=== PATIENT | female | born 1955 | race Caucasian/White ===

== ENCOUNTER 2016-12-04 13:23 | Emergency (ER) | payer BC, OTHER ==
[2016-12-04 13:31] VITALS: BP 162/81; PULSE 113; TEMP 97.8; BMI 46.5
[2016-12-04] MEDS ORDERED: OXYMETAZOLINE 0.05% NASAL SOLUTION 15 ML BOTTLE NS ONE (14:15)
--- NOTE | 2016-12-04 14:50 | PDOC ---
History of Present Illness - General Chief Complaint: Nasal Bleeding Stated Complaint: NASAL BLEEDING Time Seen by Provider: 12/04/16 14:22 History Source: Patient Exam Limitations: No Limitations - History of Present Illness Initial Comments: 12/04/16 14:47 61 yr female with nose bleed left side started this am, then stopped and started again while out shopping. Pt denies trauma no headache or dizzyness. Pt states he nose has been very dry the past week has noticed dried blood clots when blowing nose in the morning. Pt takes baby aspirin daily, no other blood thinners, no history of nose bleeds. took motrin yesterday for pain in wrist. 12/04/16 15:34 Severity: mild Associated Symptoms: reports: denies symptoms Past History - Past Medical History Allergies/Adverse Reactions: Allergies Allergy/AdvReac Type Severity Reaction Status Date / Time nebivolol HCl [From Bystolic] Allergy Mild Verified 12/04/16 13:31 Home Medications: Ambulatory Orders Losartan/Hydrochlorothiazide [Hyzaar 100-25 Tablet] 1 each PO DAILY 11/15/15 Amlodipine Besylate [Norvasc -] 2.5 mg PO DAILY 10/11/16 Anemia: No Asthma: No Cancer: No Cardiac Disorders: No CVA: No COPD: No CHF: No Dementia: No Diabetes: No GI Disorders: No Disorders: No HTN: Yes Hypercholesterolemia: Yes Liver Disease: No Seizures: No Thyroid Disease: No - Surgical History Abdominal Surgery: No Appendectomy: No Cardiac Surgery: No Cholecystectomy: No Lung Surgery: No Neurologic Surgery: No Orthopedic Surgery: No - Psycho/Social/Smoking Cessation Hx Anxiety: No Suicidal Ideation: No Smoking History: Never smoked Have you smoked in the past 12 months: No If you are a former smoker, when did you quit?: 27YRS AGO Hx Alcohol Use: No Drug/Substance Use Hx: No Substance Use Type: None Hx Substance Use Treatment: No Review of Systems - Review of Systems Able to Perform ROS?: Yes Is the patient limited Lao proficient: No Constitutional: No: Symptoms Reported HEENTM: Yes: See HPI *Physical Exam - Vital Signs Last Vital Signs Temp Pulse Resp BP Pulse Ox 97.8 F 113 H 20 162/81 96 12/04/16 13:28 12/04/16 13:28 12/04/16 13:28 12/04/16 13:28 12/04/16 13:28 - Physical Exam General Appearance: Yes: Nourished, Appropriately Dressed HEENT: positive: EOMI, JCARLOS, TMs Normal, Pharynx Normal, Other (bleeding left nare ) Respiratory/Chest: positive: Lungs Clear, Normal Breath Sounds Cardiovascular: positive: Regular Rhythm, Regular Rate Procedures - Additional Procedures Additional Procedures: other ED Treatment Course - Medications Given in the ED: ED Medications Discontinued Medications Generic Name Dose Route Start Last Admin Trade Name Renato PRN Reason Stop Dose Admin Oxymetazoline HCl 1 spray 12/04/16 14:15 12/04/16 14:34 Afrin - NS 12/04/16 14:16 1 spray ONCE ONE Administration Medical Decision Making - Medical Decision Making 12/04/16 15:36 cc: left nostril nose bleeding will have pt apply firm direct pressure 2 sprays afrin to left nostril silver nitrite to cauterize pt tolerated well no bleeding now will monitor 12/04/16 15:39 *DC/Admit/Observation/Transfer Diagnosis at time of Disposition: Anterior epistaxis - Discharge Dispostion Disposition: HOME Condition at time of disposition: Good - Referrals Referrals: Sherlyn Coleman MD [Primary Care Provider] - - Patient Instructions Additional Instructions: use saline spray 3-4 times during the day to keep nares moist use the decongestant nose spray 2 sprays in twelve hours follow with the ENT tomorrow as scheduled if bleeding re-occurs sit down and hold firm direct pressure to the bridge of nose for 15 minutes if bleeding does not stop you can return to the ER most nosebleeds will stop with firm direct pressure
== END 2016-12-04 15:07 | disposition home or self-care (01) ==
LOC: JERFT 13:23 → JER 13:23 → JERFT 15:07
PROC: 0W3Q0ZZ Control Bleeding in Respiratory Tract, Open Approach (ICD-10-PCS; principal; 2016-12-04)
DX: R04.0 Epistaxis (principal); I10 Essential (primary) hypertension; E78.00 Pure hypercholesterolemia, unspecified; Z87.891 Personal history of nicotine dependence
CPT/HCPCS: 99281-25

== ENCOUNTER 2018-11-01 02:36 | Emergency (ER) | payer BC, OTHER ==
[2018-11-01 03:00] VITALS: BP 145/65; PULSE 97; TEMP 98; BMI 48.2
[2018-11-01] MEDS ORDERED: TETRACAINE 0.5% OPHTH SOLN 2 ML BOTTLE ONE (03:01)
[2018-11-01] MEDS ORDERED: FLUORESCEIN NA 1 EA STRIP ONE (03:01)
--- NOTE | 2018-11-01 03:35 | PDOC ---
History of Present Illness - General Chief Complaint: Eye Problem Stated Complaint: LEFT EYE PROBLEM Time Seen by Provider: 11/01/18 02:44 History Source: Patient Exam Limitations: No Limitations Past History - Past Medical History Allergies/Adverse Reactions: Allergies Allergy/AdvReac Type Severity Reaction Status Date / Time nebivolol HCl [From Bystolic] Allergy Mild Verified 11/01/18 02:54 Home Medications: Ambulatory Orders Losartan/Hydrochlorothiazide [Hyzaar 100-25 Tablet] 1 each PO DAILY 11/15/15 Amlodipine Besylate [Norvasc -] 2.5 mg PO DAILY 10/11/16 Anemia: No Asthma: No Cancer: No Cardiac Disorders: No CVA: No COPD: No CHF: No Dementia: No Diabetes: No GI Disorders: No Disorders: No HTN: Yes Hypercholesterolemia: Yes Liver Disease: No Seizures: No Thyroid Disease: No - Surgical History Abdominal Surgery: No Appendectomy: No Cardiac Surgery: No Cholecystectomy: No Lung Surgery: No Neurologic Surgery: No Orthopedic Surgery: No - Suicide/Smoking/Psychosocial Hx Smoking History: Never smoked Have you smoked in the past 12 months: No If you are a former smoker, when did you quit?: 27YRS AGO Information on smoking cessation initiated: No Hx Alcohol Use: No Drug/Substance Use Hx: No Substance Use Type: None Hx Substance Use Treatment: No *Physical Exam - Vital Signs Last Vital Signs Temp Pulse Resp BP Pulse Ox 98.0 F 97 H 18 145/65 97 11/01/18 02:54 11/01/18 02:54 11/01/18 02:54 11/01/18 02:54 11/01/18 02:54 - Physical Exam General Appearance: No: Apparent Distress HEENT: positive: EOMI, JCARLOS, Other (No dye uptake, no evidence of corneal abrasion, no FB on eyelid eversion, no cell flare noted in eyes, 20/20 R eye, 20 /20 L eye, 20/20 both eyes) Neurologic: positive: pourer buggy ladle II-XII NML intact, Fully Oriented, Alert, Normal Mood/ Affect, Normal Response, Motor Strength 5/5. negative: Abnormal Cranial NS, Facial Droop, Confused, Disoriented Moderate Sedation - Procedure Monitoring Vital Signs: Procedure Monitoring Vital Signs Temperature 98.0 F 11/01/18 02:54 Pulse Rate 97 H 11/01/18 02:54 Respiratory Rate 18 11/01/18 02:54 Blood Pressure 145/65 11/01/18 02:54 O2 Sat by Pulse Oximetry (%) 97 11/01/18 02:54 Medical Decision Making - Medical Decision Making 63 y/o F hx of HTN presents with waking up in the middle of the night today and noticed black spot when moving L eye. Denies eye pain, photophobia, FB sensation in eyes, blurred vision, diplopia, vision loss, headache, n/v, numbness/tingling/weakness of extremities. PE unremarkable Could possibly by HTN retinopathy? Unlikely corneal abrasion, iritis, stroke Wanted to refer patient to interface analyst, but patient's son is physician at [facility], who states he will take her there to get evaluated 11/01/18 03:32 *DC/Admit/Observation/Transfer Diagnosis at time of Disposition: Eye abnormality - Discharge Dispostion Disposition: HOME Condition at time of disposition: Stable Decision to Admit order: No - Referrals - Patient Instructions Additional Instructions: Thank you for choosing [facility]. It was a pleasure taking care of you. The cause of your symptoms could be related to retinopathy, for which you will need further evaluation by an eye doctor. Return to the Emergency Department if your symptoms worsen or persist, you have fever, loss of vision, double vision, severe eye pain, weakness of extremities ( arms and/or legs), changes in vision or walking, severe headache or other concerning symptoms. - Post Discharge Activity
== END 2018-11-01 05:00 | disposition home or self-care (01) ==
LOC: JER 02:36
DX: K08.89 Other specified disorders of teeth and supporting structures (principal); I10 Essential (primary) hypertension
CPT/HCPCS: 99281-25

== ENCOUNTER 2020-08-14 05:05 | Day surgery (SDC) | payer OTHER ==
[2020-08-09 15:09] VITALS: BMI 48.8
--- OUTSIDE RECORDS SUMMARY | 2020-08-14 05:10 | XMS ---
:1955 Author Organization [facility] Care Team Providers Name Role Phone VANITA SANTAMARIA Unavailable Unavailable ANITHA SUMMERS Unavailable Unavailable BAKARI ECHOLS Unavailable Unavailable Roston, Andreas Unavailable Unavailable Roston, Andreas Unavailable Unavailable Roston, Andreas Unavailable Unavailable Roston, Andreas Unavailable Unavailable Roston, Andreas Unavailable Unavailable Roston, Andreas Unavailable Unavailable Roston, Andreas Unavailable Unavailable Roston, Andreas Unavailable Unavailable Re-disclosure Warning The records that you are about to access may contain information from federally- assisted alcohol or drug abuse programs. If such information is present, then the following federally mandated warning applies: This information has been disclosed to you from records protected by federal confidentiality rules (42 CFR part 2). The federal rules prohibit you from making any further disclosure of this information unless further disclosure is expressly permitted by the written consent of the person to whom it pertains or as otherwise permitted by 42 CFR part 2. A general authorization for the release of medical or other information is NOT sufficient for this purpose. The Federal rules restrict any use of the information to criminally investigate or prosecute any alcohol or drug abuse patient.The records that you are about to access may contain highly sensitive health information, the redisclosure of which is protected by Article 27-F of the [place] State Public Health law. If you continue you may haveaccess to information: Regarding HIV / AIDS; Provided by facilities licensed or operated by the [facility] Office of Mental Health; or Provided by the [facility] Office for People With Developmental Disabilities. If such information is present, then the following [facility] mandated warning applies: This information has been disclosed to you from confidential records which are protected by state law. State law prohibits you from making any further disclosure of this information without the specific written consent of the person to whom it pertains, or as otherwise permitted by law. Any unauthorized further disclosure in violation of state law may result in a fine or fpc sentence or both. A general authorization for the release of medical or other information is NOT sufficient authorization for further disclosure. Allergies and Adverse Reactions Type Description Substance Reaction Status Data Source(s ) Adverse Reaction Adverse Reaction Allopurinol M EDENT (Digestive Disease & Nutr [facility]) Adverse Reaction Adverse Reaction Bystolic ME DENT (Digestive Disease & Nutr [facility]) Family History Family Member Family Member Family Member Date of Description Data Source(s) Name Gender Status Status Unknown Unknown Problem MEDENT (Digestive Disease & Nutrition [facility] ) Encounters Encounter Providers Location Date Indications Data Source(s ) Outpatient Attender: MELINA 07/18/2020 J45.998 [facility] ANITH[facility]indaAdmitter[facility] ANITHAGAURAV FRANCO Mona PerlaReferrer: VANITA SANTAMARIA J45.998 Outpatient Attender: KINZA 07/13/2020 01:02:00 Z03.818 [facility] BAKARI ShafferAdmitter: [facility] BAKARI ECHOLS EBalbirReferrer: BAKARI ECHOLS Z03.818 Outpatient Attender: Andreas Digestive Disease 08/05/2019 M EDENT (Digestive [place] & Nutrition 05:10:00 PM [facility] Disease & Nutrition [facility]) Outpatient Attender: Andreas Digestive Disease 07/08/2019 M EDENT (Digestive [place] & Nutrition 05:00:00 PM [facility] Disease & Nutrition [facility]) Outpatient Attender: Andreas Digestive Disease 05/27/2019 M EDENT (Digestive [place] & Nutrition 05:00:00 PM [facility] Disease & Nutrition [facility]) Outpatient Attender: Andreas Digestive Disease 05/13/2019 M EDENT (Digestive [place] & Nutrition 05:00:00 PM EDT Disease & Nutrition [facility]) Outpatient Attender: Andreas Digestive Disease 04/29/2019 M EDENT (Digestive [place] & Nutrition 04:50:00 PM EDT Disease & Nutrition [facility]) Outpatient Attender: Andreas Digestive Disease 04/15/2019 M EDENT (Digestive [place] & Nutrition 05:05:00 PM EDT Disease & Nutrition [facility]) Outpatient Attender: Andreas Digestive Disease 03/18/2019 M EDENT (Digestive [place] [facility] Nutrition 05:25:00 PM EDT Disease & Nutrition [facility]) Outpatient Attender: Andreas Digestive Disease 03/04/2019 M EDENT (Digestive [place] & Nutrition 05:10:00 PM EDT Disease & Nutrition [facility]) Outpatient Attender: Andreas Digestive Disease 02/18/2019 M EDENT (Digestive [place] & Nutrition 05:05:00 PM EDT Disease & Nutrition [facility]) Outpatient Attender: Andreas Digestive Disease 02/04/2019 M EDENT (Digestive [place] & Nutrition 05:10:00 PM EDT Disease & Nutrition [facility]) Outpatient Attender: Andreas Digestive Disease 01/28/2019 M EDENT (Digestive [place] & Nutrition 12:30:00 PM EDT Disease & Nutrition [facility]) Outpatient Attender: Andreas Digestive Disease 01/21/2019 M EDENT (Digestive [place] & Nutrition 04:10:00 PM [facility] Disease & Nutrition [facility]) Outpatient Attender: Andreas Digestive Disease 01/14/2019 M EDENT (Digestive [place] & Nutrition 04:00:00 PM EST Disease & Nutrition [facility]) Outpatient Attender: Andreas Digestive Disease 01/04/2019 M EDENT (Digestive [place] & Nutrition 09:40:00 AM EST Disease & Nutrition [facility]) Medications Medication Brand Start Product Dose Route Administrative Pharmacy [facility] Indications Reaction Description Data Name Date Form Instructions Instructions Source(s) Ursodiol Ursodi 03/08/ ORAL active MEDEN T 500 MG Oral 2018 (Digesti ve Tablet 12:00: Disease & 00 AM Nutrition EDT [facility]) Ursodiol Ursodi 01/04/ ORAL complet MEDE NT 500 MG Oral ol 2019 ed (Digesti ve Tablet 12:00: Disease & 00 AM Nutrition EST [facility]) 24 HR Diltia ORAL active MEDENT Diltiazem zem (Digestive Hydrochlori HCL ER Diseas e & de 120 MG [facility] Oral r) Capsule Losartan Losart ORAL active MEDENT Potassium an (Digestive 50 MG Oral Potass Disease & Tablet ium Nutrition [facility]) 24 HR Metopr ORAL active MEDENT metoprolol olol (Digestiv e succinate Succin Disease & 25 MG ate ER Nutrition [facility] Oral Tablet r) Hydrochloro Hyzaar ORAL active MEDE NT thiazide (Digestive 12.5 MG / Disease & Losartan Nutrition Potassium Center of 50 MG Oral [facility] Tablet r) [Hyzaar] Insurance Providers Payer Policy type / Policy ID Covered Covered alliance party's Policy Plan name Coverage type alliance party ID relationship to Sarmiento Information sarmiento AET[employer] PPO [id number] SP [id number] AETNA PPO [id number] SP [id number] [employer] Ppo Health [id number] Self [id number] Maintenance Organization (HMO) [employer] Ppo Health [id number] Self [id number] Maintenance Organization (HMO) [employer] Ppo Health [id number] Self [id number] Maintenance Organization (HMO) [employer] Ppo [employer] [id number] Self [id number] Maintenance Organization (HMO) [employer] Health [id number] Self [id number] Maintenance Organization (HMO) [employer] [id number] Self [id number] Maintenance Organization (HMO) [employer] [id number] Self [id number] Maintenance Organization (HMO) [employer] [id number] Self [id number] Maintenance Organization (HMO) [employer] [id number] Self [id number] Maintenance Organization (HMO) [employer] [id number] Self [id number] Maintenance Organization (HMO) [employer] [id number] Self [id number] Maintenance Organization (HMO) Problems, Conditions, and Diagnoses Code Display Name Description Problem Effective Data Type Dates Source(s) 082712270 Dietary management Dietary management Problem 9 MEDENT surveillance surveillance 12:00:00 (Digestive (regime/therapy) [facility] Disease & Nutrition [facility]) [id number] Body mass index 40+ - Body mass index 40+ - Problem 05/2019 MEDENT severely obese severely obese 12:00:00 (Diges tive (finding) [facility] Disease & Nutrition [facility]) [id number] Pure Pure Problem 01/04/2019 MEDENT hypercholesterolemia hypercholesterolemia 12:00 :00 (Digestive (disorder) [facility] Disease & Nutrition [facility]) [id number] Essential hypertension Essential Problem 01/04/2019 ME DENT (disorder) hypertension 12:00:00 (Digestive [facility] Disease & Nutrition [facility]) J45.998 Other asthma OTHER ASTHMA Diagnosis 07[facility]00 [facility] Z03.818 Encounter for ENCNTR FOR OBS FOR Diagnosis 07/13/2020 [facility] observation for SUSP EXPSR TO OTH 01:02:00 Co unty suspected exposure to BIOLG AGENTS RULED PM EDT Health Care other biological OUT Corporat ion agents ruled out Surgeries/Procedures Procedure Description Date Indications Data Source(s) ECG ROUTINE ECG 01/04/2019 MEDENT (Dige stive W/LEAST 12 LDS W/I&R 12:00:00 AM EST [facility] ase & Nutrition [facility]) Results ID Date Data Source [id number] 08/09/2020 05:30:00 PM EDT [facility] Name Value Range Interpretation Description Data Sup porting Code Source(s) Document(s ) SARS [facility] coronavirus 2 RNA This lab was ordered by [facility] and reported by [facility]. ID Date Data Source [id number] 06/08/2020 11:24:00 AM EDT [facility] Name Value Range Interpretation Code Description Data Manuela rce(s) Supporting Document(s ) SARS-CoV-2 [facility] RNA [facility] Ql KATLIN+probe This lab was ordered by [facility] a nd reported by [facility]. ID Date Data Source [id number] 05/29/2020 05:00:00 PM EDT [facility] Name Value Range Interpretation Description Data Sup porting Code Source(s) Document(s ) SARS [facility] Coronavirus 2 RNA Presence Respiratory Specimen KATLIN Probe Detection This lab was ordered by [place] and rep orted by [facility]. ID Date Data Source [id number] 08/05/2019 05:30:00 PM EDT MEDENT ([facility] Disease & Nutrition [facility]) Name Value Range Interpretation Description Data Sup porting Code Source(s) Document(s ) Urate 8.8 3.1-7.8 Above high normal MEDENT [Mass/volume] mg/dL (Digestive in Serum or Disease & Plasma Nutrition [facility]) Hemoglobin 5.6 % 4.2-6.3 Normal (applies MEDENT A1c/Hemoglobin to non-numeric (Digestive .total in results) Disease & Blood Nutrition [facility]) ADA RECOMMENDATIONS: NON-DIABETES: 4.0-6.0% CONTROLLED DIABETES: 6.0-8.0% UNCONTROLLED DIABETES: UP TO 20% RECOMMENDED ADA RESULT FOR THERAPY: HEMO GLOBIN A1C RESULT LESS THAN 7%. NOTE: METHOD CHANGE EFFECTIVE 06/16/15. ID Date Data Source [id number] 08/05/2019 05:30:00 PM EDT MEDENT ([facility]) Name Value Range Interpretation Description Data Sup porting Code Source(s) Document(s ) Cholesterol 253 107-199 Above high normal MEDENT [Mass/volume] mg/dL (Digestive in Serum or Disease & Plasma Nutrition [facility]) Triglyceride 223 35-150 Above high normal MEDENT [Mass/volume] mg/dL (Digestive in Serum or Disease & Plasma Nutrition [facility]) Cholesterol in 63 mg/dL 40-91 Normal (applies MEDENT HDL to non-numeric (Digestive [Mass/volume] results) Disease & in Serum or Nutrition Plasma [facility]) Laboratory test 44 mg/dL 5-40 Above high normal MEDENT finding (Digestive (navigational Disease & concept) [facility]) Cholesterol in 162 30-130 Above high normal MEDENT LDL mg/dL (Digestive [Mass/volume] Disease & in Serum or Nutrition Plasma by Center of calculation [place]) Laboratory test 4.0 0.0-5.0 Normal (applies MEDENT finding RATIO to non-numeric (Digestive (navigational results) Disease & concept) Nutrition [facility]) LOW MALE AND AVERAGE FEMALE CORONARY HEA RT DISEASE RISK. ID Date Data Source [id number] 08/05/2019 05:30:00 PM EDT MEDENT (Diges tive Disease & Nutrition [facility]) Name Value Range Interpretation Description Data Sup porting Code Source(s) Document(s ) Glucose 93 74-106 Normal (applies MEDENT [Mass/volume] in mg/dL to non-numeric (Digesti ve Serum or Plasma results) Disease & Nutrition [facility] ) Sodium 141 136-145 Normal (applies MEDENT [Moles/volume] in mmol/L to non-numeric (Digest vinay Serum or Plasma results) Disease & Nutrition [facility] ) Chloride 101 98-107 Normal (applies MEDENT [Moles/volume] in mmol/L to non-numeric (Digest vinay Serum or Plasma results) Disease & Nutrition [facility] ) Potassium 4.3 3.5-5.3 Normal (applies MEDENT [Moles/volume] in mmol/L to non-numeric (Digest vinay Serum or Plasma results) Disease & Nutrition [facility] ) Laboratory test 23 6-20 Above high MEDENT finding mg/dL normal (Digestive (navigational Disease & concept) Nutrition [facility] ) Laboratory test 13 6-18 Normal (applies MEDENT finding to non-numeric (Digestive (navigational results) Disease & concept) Nutrition [facility] ) Carbon dioxide, 31 23-31 Normal (applies MEDENT total mmol/L to non-numeric (Digestive [Moles/volume] in results) Disease & Serum or Plasma Nutrition [facility] ) Calcium 9.8 8.3-10. Normal (applies MEDENT [Mass/volume] in mg/dL 6 to non-numeric (Digesti ve Serum or Plasma results) Disease & Nutrition [facility] ) Creatinine 0.8 0.6-1.1 Normal (applies MEDENT [Mass/volume] in mg/dL to non-numeric (Digesti ve Serum or Plasma results) Disease & Nutrition [facility] ) Laboratory test 28.8 6.0-20. Above high MEDENT finding 0 normal (Digestive (navigational Disease & concept) Nutrition [facility] ) Albumin 4.8 3.4-4.8 Normal (applies MEDENT [Mass/volume] in GM/DL to non-numeric (Digesti ve Serum or Plasma results) Disease & Nutrition [facility] ) Protein 7.9 5.7-8.2 Normal (applies MEDENT [Mass/volume] in GM/DL to non-numeric (Digesti ve Serum or Plasma results) Disease & Nutrition [facility] ) Laboratory test 1.5 1.0-2.1 Normal (applies MEDENT finding to non-numeric (Digestive (navigational results) Disease & concept) Nutrition [facility] ) Alkaline 76 U/L 41-147 Normal (applies MEDENT phosphatase to non-numeric (Digestive [Enzymatic results) Disease & activity/volume] in Nutrition Serum or Plasma [facility] ) Bilirubin.total 0.7 0.3-1.2 Normal (applies MEDENT [Mass/volume] in mg/dL to non-numeric (Digesti ve Serum or Plasma results) Disease & Nutrition [facility] ) Alanine 28 U/L 8-35 Normal (applies MEDENT aminotransferase to non-numeric (Digesti ve [Enzymatic results) Disease & activity/volume] in Nutrition Serum or Plasma [facility] ) Aspartate 17 U/L 10-48 Normal (applies MEDENT aminotransferase to non-numeric (Digesti ve [Enzymatic results) Disease & activity/volume] in Nutrition Serum or Plasma [facility] ) ID Date Data Source [id number] 08/05/2019 05:30:00 PM EDT MEDENT (Diges tive Disease & Nutrition [facility]) Name Value Range Interpretation Description Data Sup porting Code Source(s) Document(s ) Laboratory 7.4 K/UL 4.0-10.0 Normal (applies MEDENT test finding to non-numeric (Digestive (navigational results) Disease & concept) Nutrition [facility]) Laboratory 4.93 3.80-5.1 Normal (applies MEDENT test finding MIL/UL 0 to non-numeric (Digestive (navigational results) Disease & concept) [facility]) Laboratory 14.4 11.8-15. Normal (applies MEDENT test finding GM/DL 3 to non-numeric (Digestive (navigational results) Disease & concept) [facility]) Laboratory 29.2 pg 27.0-34. Normal (applies MEDENT test finding 0 to non-numeric (Digestive (navigational results) Disease & concept) Nutrition [facility]) Laboratory 91.7 FL 80.0-96. Normal (applies MEDENT test finding 0 to non-numeric (Digestive (navigational results) Disease & concept) Nutrition [facility]) Laboratory 45.2 % 35.0-45. Above high normal MEDENT test finding 0 (Digestive (navigational Disease & concept) [facility]) Laboratory 31.9 31.0-36. Normal (applies MEDENT test finding GM/DL 0 to non-numeric (Digestive (navigational results) Disease & concept) Nutrition [facility]) Laboratory 323 K/UL 150-400 Normal (applies MEDENT test finding to non-numeric (Digestive (navigational results) Disease & concept) [facility]) Laboratory 13.8 % 11.5-14. Normal (applies MEDENT test finding 5 to non-numeric (Digestive (navigational results) Disease & concept) [facility]) Laboratory 10.6 FL 9.6-12.8 Normal (applies MEDENT test finding to non-numeric (Digestive (navigational results) Disease & concept) [facility]) ID Date Data Source [id number] 05/13/2019 05:34:00 PM EDT MEDENT ([facility] Disease & Nutrition [facility]) Name Value Range Interpretation Description Data Sup porting Code Source(s) Document(s ) Magnesium 2.3 mg/dL 1.3-2.7 Normal (applies MEDENT [Mass/volume] to non-numeric (Digestive in Serum or results) Disease & Plasma Nutrition [facility]) Phosphate 4.2 mg/dL 2.7-4.5 Normal (applies MEDENT [Moles/volume to non-numeric (Digestive ] in Serum or results) Disease & Plasma Nutrition [facility]) ID Date Data Source [id number] 05/13/2019 05:34:00 PM EDT MEDENT ([facility] Disease & Nutrition [facility]) Name Value Range Interpretation Description Data Sup porting Code Source(s) Document(s ) Cholesterol 242 107-199 Above high normal MEDENT [Mass/volume] mg/dL (Digestive in Serum or Disease & Plasma Nutrition [facility]) Triglyceride 232 35-150 Above high normal MEDENT [Mass/volume] mg/dL (Digestive in Serum or Disease & Plasma Nutrition [facility]) Cholesterol in 61 mg/dL 40-91 Normal (applies MEDENT HDL to non-numeric (Digestive [Mass/volume] results) Disease & in Serum or Nutrition Plasma [facility]) Cholesterol in 150 30-130 Above high normal MEDENT LDL mg/dL (Digestive [Mass/volume] Disease & in Serum or Nutrition Plasma by [facility]) Laboratory test 46 mg/dL 5-40 Above high normal MEDENT finding (Digestive (navigational Disease & concept) [facility]) Laboratory test 4.0 0.0-5.0 Normal (applies MEDENT finding RATIO to non-numeric (Digestive (navigational results) Disease & concept) [facility]) LOW MALE AND AVERAGE FEMALE CORONARY HEA RT DISEASE RISK. ID Date Data Source [id number] 05/13/2019 05:34:00 PM EDT [facility]) Name Value Range Interpretation Description Data Sup porting Code Source(s) Document(s ) Urate 8.5 3.1-7.8 Above high normal MEDENT [Mass/volume] mg/dL (Digestive in Serum or Disease & Plasma [facility]) Hemoglobin 5.9 % 4.2-6.3 Normal (applies MEDENT A1c/Hemoglobin to non-numeric (Digestive .total in results) Disease & Blood [facility]) ADA RECOMMENDATIONS: NON-DIABETES: 4.0-6.0% CONTROLLED DIABETES: 6.0-8.0% UNCONTROLLED DIABETES: UP TO 20% RECOMMENDED ADA RESULT FOR THERAPY: HEMO GLOBIN A1C RESULT LESS THAN 7%. NOTE: METHOD CHANGE EFFECTIVE 06/16/15. ID Date Data Source [id number] 05/13/2019 05:34:00 PM EDT MEDENT ([facility]) Name Value Range Interpretation Description Data Sup porting Code Source(s) Document(s ) Laboratory 8.7 K/UL 4.0-10.0 Normal (applies MEDENT test finding to non-numeric (Digestive (navigational results) Disease & concept) [facility]) Laboratory 4.89 3.80-5.1 Normal (applies MEDENT test finding MIL/UL 0 to non-numeric (Digestive (navigational results) Disease & concept) Nutrition [facility]) Laboratory 14.3 11.8-15. Normal (applies MEDENT test finding GM/DL 3 to non-numeric (Digestive (navigational results) Disease & concept) Nutrition [facility]) Laboratory 45.4 % 35.0-45. Above high normal MEDENT test finding 0 (Digestive (navigational Disease & concept) Nutrition [facility]) Laboratory 92.8 FL 80.0-96. Normal (applies MEDENT test finding 0 to non-numeric (Digestive (navigational results) Disease & concept) Nutrition [facility]) Laboratory 31.5 31.0-36. Normal (applies MEDENT test finding GM/DL 0 to non-numeric (Digestive (navigational results) Disease & concept) Nutrition [facility]) Laboratory 29.2 pg 27.0-34. Normal (applies MEDENT test finding 0 to non-numeric (Digestive (navigational results) Disease & concept) Nutrition [facility]) Laboratory 336 K/UL 150-400 Normal (applies MEDENT test finding to non-numeric (Digestive (navigational results) Disease & concept) Nutrition [facility]) Laboratory 14.5 % 11.5-14. Normal (applies MEDENT test finding 5 to non-numeric (Digestive (navigational results) Disease & concept) Nutrition [facility]) Laboratory 10.8 FL 9.6-12.8 Normal (applies MEDENT test finding to non-numeric (Digestive (navigational results) Disease & concept) Nutrition [facility]) ID Date Data Source [id number] 05/13/2019 05:34:00 PM EDT MEDENT (Diges tive Disease & Nutrition [facility]) Name Value Range Interpretation Description Data Sup porting Code Source(s) Document(s ) Sodium 141 136-145 Normal (applies MEDENT [Moles/volume] in mmol/L to non-numeric (Digest vinay Serum or Plasma results) Disease & Nutrition [facility] ) Glucose 88 74-106 Normal (applies MEDENT [Mass/volume] in mg/dL to non-numeric (Digesti ve Serum or Plasma results) Disease & Nutrition [facility] ) Potassium 4.2 3.5-5.3 Normal (applies MEDENT [Moles/volume] in mmol/L to non-numeric (Digest vinay Serum or Plasma results) Disease & Nutrition [facility] ) Chloride 102 98-107 Normal (applies MEDENT [Moles/volume] in mmol/L to non-numeric (Digest vinay Serum or Plasma results) Disease & Nutrition [facility] ) Carbon dioxide, 27 23-31 Normal (applies MEDENT total mmol/L to non-numeric (Digestive [Moles/volume] in results) Disease & Serum or Plasma Nutrition [facility] ) Laboratory test 16 6-18 Normal (applies MEDENT finding to non-numeric (Digestive (navigational results) Disease & concept) Nutrition [facility] ) Laboratory test 25 6-20 Above high MEDENT finding mg/dL normal (Digestive (navigational Disease & concept) Nutrition [facility] ) Creatinine 0.7 0.6-1.1 Normal (applies MEDENT [Mass/volume] in mg/dL to non-numeric (Digesti ve Serum or Plasma results) Disease & Nutrition [facility] ) Laboratory test 35.7 6.0-20. Above high MEDENT finding 0 normal (Digestive (navigational Disease & concept) Nutrition [facility] ) Calcium 9.6 8.3-10. Normal (applies MEDENT [Mass/volume] in mg/dL 6 to non-numeric (Digesti ve Serum or Plasma results) Disease & Nutrition [facility] ) Protein 7.5 5.7-8.2 Normal (applies [facility] [Mass/volume] in GM/DL to non-numeric (Digesti ve Serum or Plasma results) Disease & Nutrition [facility] ) Albumin 4.6 3.4-4.8 Normal (applies [facility] [Mass/volume] in GM/DL to non-numeric (Digesti ve Serum or Plasma results) Disease & Nutrition [facility] ) Laboratory test 1.6 1.0-2.1 Normal (applies MED[facility] finding to non-numeric (Digestive (navigational results) Disease & concept) Nutrition [facility] ) Bilirubin.total 0.7 0.3-1.2 Normal (applies [facility] [Mass/volume] in mg/dL to non-numeric (Digesti ve Serum or Plasma results) Disease & Nutrition [facility] ) Alkaline 74 U/L 41-147 Normal (applies MED[facility] phosphatase to non-numeric (Digestive [Enzymatic results) Disease & activity/volume] in Nutrition Serum or Plasma [facility] ) Alanine 27 U/L 8-35 Normal (applies [facility] aminotransferase to non-numeric (Digesti ve [Enzymatic results) Disease & activity/volume] in Nutrition Serum or Plasma [facility] ) Aspartate 17 U/L 10-48 Normal (applies [facility] aminotransferase to non-numeric (Digesti ve [Enzymatic results) Disease & activity/volume] in Nutrition Serum or Plasma [facility] ) ID Date Data Source [id number] 03/18/2019 05:07:00 PM EDT MEDENT (Diges tive [facility] & Nutrition [facility]) Name Value Range Interpretation Description Data Sup porting Code Source(s) Document(s ) Cholesterol 244 mg/dL Above high normal [facility] [Mass/volume] (Digestive in Serum or Disease & Plasma Nutrition [facility]) Cholesterol in 55 mg/dL Normal (applies MED[facility] HDL to non-numeric (Digestive [Mass/volume] results) Disease & in Serum or Nutrition Plasma [facility]) Cholesterol in 153 mg/dL Above high normal [facility] LDL (Digestive [Mass/volume] Disease & in Serum or Nutrition Plasma by [facility]) <content>LDL-C is now calculated using heide Dominique calculation,</content>
<content>which is a validated novel method providing be tter accuracy</content>
<content>than the Friedewald equation in the estimation of LDL-C.</co ntent>
<content>[place] PELLETIER et al. ALEK. 2013; 310(19): 1281-0604</content>
<content></sommer nt>
<content>For additional information, please refer to</content>
<content>[email or web address]</cont ent>
<content>( This link is being provided for informational/educational</content>
<content>purposes only.)</content>
<content></content>
<content>Desirable range < 100 mg/dL for primary prevention; <70 mg/dL</content>
<con tent>for patients with CHD or diabetic patients with > or = 2 CHD</content>
<content>risk factor s.</content>
<content></content> Cholesterol.total/Cholesterol in 4.4 calc Normal (applies [facility] (Digestive HDL [Mass Ratio] in Serum or Plasma to non-numeric Disease & results) Nutrition [facility]) Triglyceride [Mass/volume] in Serum 222 mg/dL Above high normal [facility] (Digestive or Plasma Disease & Nutrition [facility]) Cholesterol non HDL [Mass/volume] 189 Above high prudence l MED[facility] (Digestive in Serum or Plasma mg/dL(calc Disease & ) Nutrition [facility]) <content>For patients with diabetes plus 1 major ASCVD risk</content>
<content>factor, mell ting to a non-HDL-C goal of <100 mg/dL</content>
<content>(LDL-C of < 70 mg/dL) is considered a therapeutic</content>
<content>optio n.</content>
<content></content> ID Date Data Source [id number] 03/18/2019 05:07:00 PM EDT [facility] ([facility]) Name Value Range Interpretation Description Data Sup porting Code Source(s) Document(s ) Urate 8.7 mg/dL 2.5-7.0 Above high normal [facility] [Mass/volu (Digestive me] in Disease & Serum or Nutrition Plasma [facility]) <content>Therapeutic target for gout pat ients: <6.0 mg/dL</content>
<content></content> ID Date Data Source [id number] 03/18/2019 05:07:00 PM EDT [facility] ([facility] & Nutrition [facility]) Name Value Range Interpretation Description Data Sup porting Code Source(s) Document(s ) Glucose 88 mg/dL 65-139 Normal (applies to [facility] [Mass/volum non-numeric (Digestive e] in Serum results) Disease & or Plasma Nutrition [facility]) <content>Therapeutic target for gout pat ients: <6.0 mg/dL</content>
<content></content> Sodium [Moles/volume] 138 mmol/L 135-146 Normal (applies to [facility] (Digestive in Serum or Plasma non-numeric Disease & Nutrition results) [facility]) Chloride 99 mmol/L 98-110 Normal (applies to [facility] (Dig estive [Moles/volume] in non-numeric Disease & Nutrition Serum or Plasma results) [facility]) Potassium 4.2 mmol/L 3.5-5.3 Normal (applies to [facility] (Di gestive [Moles/volume] in non-numeric Disease & Nutrition Serum or Plasma results) [facility]) Urea nitrogen 20 mg/dL 7-25 Normal (applies to [facility] (Digestive [Mass/volume] in Serum non-numeric Disea se & Nutrition or Plasma results) [facility]) Carbon dioxide, total 26 mmol/L 20-32 Normal (applies to [facility] (Digestive [Moles/volume] in non-numeric Disease & Nutrition Serum or Plasma results) [facility]) Calcium [Mass/volume] 9.7 mg/dL 8.6-10.4 Normal (applies to [facility] (Digestive in Serum or Plasma non-numeric Disease & Nutrition results) [facility]) Creatinine 0.81 mg/dL 0.50-0.99 Normal (applies to [facility] (D igestive [Mass/volume] in Serum non-numeric Disea se & Nutrition or Plasma results) [facility]) The upper reference limit for Creatinine is approximately 13% higher for people identified as Afri can-[place]. Urea nitrogen/Creatinine NOTE (calc) 6-22 Normal (applies to [facility] (Digestive [Mass Ratio] in Serum or non-numeric Dis ease & Nutrition Plasma results) [facility]) Bun/Creatinine ratio is not reported whe n the Bun and Creatinine values are within normal limi ts. Globulin [Mass/volume] 3.2 g/dL(calc) 1.9-3.7 Normal (applies [facility] (Digestive in Serum by calculation to non-numeric D isease & results) Nutrition [facility]) Albumin [Mass/volume] 4.5 g/dL 3.6-5.1 Normal (applies ME DENT (Digestive in Serum or Plasma to non-numeric Diseas e & results) Nutrition Center [facility]) Protein [Mass/volume] 7.7 g/dL 6.1-8.1 Normal (applies ME DENT (Digestive in Serum or Plasma to non-numeric Diseas e & results) Nutrition [facility]) Bilirubin.total 0.6 mg/dL 0.2-1.2 Normal (applies [facility] ( Digestive [Mass/volume] in Serum to non-numeric Di sease & or Plasma results) Nutrition [facility]) Albumin/Globulin [Mass 1.4 (calc) 1.0-2.5 Normal (applies [facility] (Digestive Ratio] in Serum or to non-numeric Diseas e & Plasma results) Nutrition [facility]) Aspartate 17 U/L 10-35 Normal (applies MED[facility] (Digest vinay aminotransferase to non-numeric Disease & [Enzymatic results) Nutrition Center activity/volume] in of [facility]) Serum or Plasma Alkaline phosphatase 74 U/L 33-130 Normal (applies MED ENT (Digestive [Enzymatic to non-numeric Disease & activity/volume] in results) Nutrition [place] Serum or Plasma of [place] ) ID Date Data Source [id number] 03/18/2019 05:07:00 PM EDT MED[facility] (Diges tive Disease & Nutrition Center [facility]) Name Value Range Interpretation Description Data Sup porting Code Source(s) Document(s ) Erythrocytes 4.83 3.80-5.1 Normal (applies [facility] [#/volume] in Million/ 0 to non-numeric (Digestive Blood by uL results) Disease & Automated count Nutrition [facility] ) Leukocytes 8.1 3.8-10.8 Normal (applies MED[facility] [#/volume] in Thousand to non-numeric (Digestive Blood by /uL results) Disease & Automated count Nutrition [facility] ) Hemoglobin 14.3 11.7-15. Normal (applies [facility] [Mass/volume] in g/dL 5 to non-numeric (Digesti ve Blood results) Disease & Nutrition [facility] ) Hematocrit 42.1 % 35.0-45. Normal (applies [facility] [Volume 0 to non-numeric (Digestive Fraction] of results) Disease & Blood by Nutrition Automated count [facility] ) Erythrocyte mean 87.2 fL 80.0-100 Normal (applies MEDENT corpuscular .0 to non-numeric (Digestive volume [Entitic results) Disease & volume] by Nutrition Automated count [facility] ) Erythrocyte mean 34.0 32.0-36. Normal (applies MEDENT corpuscular g/dL 0 to non-numeric (Digestive hemoglobin results) Disease & concentration Nutrition [Mass/volume] by Center of Automated count [place] ) Erythrocyte mean 29.6 pg 27.0-33. Normal (applies MEDENT corpuscular 0 to non-numeric (Digestive hemoglobin results) Disease & [Entitic mass] Nutrition by Automated Center of count [place] ) Platelet mean 10.4 fL 7.5-12.5 Normal (applies MEDENT volume [Entitic to non-numeric (Digestiv e volume] in Blood results) Disease & by [facility] ) Platelets 346 140-400 Normal (applies MED[facility] [#/volume] in Thousand to non-numeric (Digestive Blood by /uL results) Disease & Automated count Nutrition [facility] ) Erythrocyte 13.5 % 11.0-15. Normal (applies MEDENT distribution 0 to non-numeric (Digestive width [Ratio] by results) Disease & Automated count Nutrition [facility] ) ID Date Data Source [id number] 02/04/2019 04:58:00 PM EDT MED[facility] (Diges tive Disease & Nutrition [facility]) Name Value Range Interpretation Description Data Sup porting Code Source(s) Document(s ) Laboratory 36 pg/mL 18-72 Normal (applies to MED[facility] test finding non-numeric (Digestive (navigational results) Disease & concept) Nutrition [facility]) Laboratory 36 pg/mL Normal (applies to [facility] test finding non-numeric (Digestive (navigational results) Disease & concept) Nutrition [facility]) Laboratory <8 pg/mL Normal (applies to [facility] test finding non-numeric (Digestive (navigational results) Disease & concept) Nutrition [facility]) Vitamin D3, 1,25(OH) indicates both endo genous production and supplementation. Vitamin D2, 1,25(OH)2 is an indicator of exogenous sources, contreras ch as diet or supplementation. Interpretation and the rapy are based on measurement of Vitamin D,1,25(OH)2, T otal. This test was developed and its analytic al performance characteristics have been de termined by [employer] [place]. It has not been cleared or approved by [place] FDA. This assay has been validated pursuant to the CLIA regulations and is used for clinical pur poses. This test was performed at: [employer] [address] ID Date Data Source [id number] 02/04/2019 04:58:00 PM EDT [facility] ([facility] & Nutrition [facility]) Name Value Range Interpretation Description Data Sup porting Code Source(s) Document(s ) Urate 9.3 mg/dL 2.5-7.0 Above high normal MED[facility] [Mass/volu (Digestive me] in Disease & Serum or Nutrition Plasma [facility]) <content>Therapeutic target for gout pat ients: <6.0 mg/dL</content>
<content></content> ID Date Data Source [id number] 02/04/2019 04:58:00 PM EDT [facility] ([facility] & Nutrition [facility]) Name Value Range Interpretation Description Data Sup porting Code Source(s) Document(s ) Cholesterol 234 mg/dL Above high normal [facility] [Mass/volume] (Digestive in Serum or Disease & Plasma Nutrition [facility]) Cholesterol.tot 4.3 calc Normal (applies MEDENT al/Cholesterol to non-numeric (Digestive in HDL [Mass results) Disease & Ratio] in Serum Nutrition or Plasma [facility]) Cholesterol in 55 mg/dL Normal (applies MED[facility] HDL to non-numeric (Digestive [Mass/volume] results) Disease & in Serum or Nutrition Plasma [facility]) Cholesterol in 145 mg/dL Above high normal MED[facility] LDL (Digestive [Mass/volume] Disease & in Serum or Nutrition Plasma by Center of calculation [place]) <content>LDL-C is now calculated using heide Dominique calculation,</content>
<content>which is a validated novel method providing be tter accuracy</content>
<content>than the Friedewald equation in the estimation of LDL-C.</co ntent>
<content>[place] PELLETIER et al. ALEK. 2013; 310(19): 3830-0762</content>
<content></sommer nt>
<content>For additional information, please refer to</content>
<content>[email or web address]</cont ent>
<content>( This link is being provided for informational/educational</content>
<content>purposes only.)</content>
<content></content>
<content>Desirable range < 100 mg/dL for primary prevention; <70 mg/dL</content>
<con tent>for patients with CHD or diabetic patients with > or = 2 CHD</content>
<content>risk factor s.</content>
<content></content> Triglyceride 202 mg/dL Above high normal MEDENT (D igestive [Mass/volume] in Serum Disease & Nutrition or Plasma Center [facility] r) Cholesterol non HDL 179 mg/dL(calc) Above high normal MED[facility] (Digestive [Mass/volume] in Serum Disease & Nutrition or Plasma Center [facility]) <content>For patients with diabetes plus 1 major ASCVD risk</content>
<content>factor, mell ting to a non-HDL-C goal of <100 mg/dL</content>
<content>(LDL-C of < 70 mg/dL) is considered a therapeutic</content>
<content>optio n.</content>
<content></content> ID Date Data Source [id number] 02/04/2019 04:58:00 PM EDT MEDENT (Diges tive Disease & Nutrition [facility]) Name Value Range Interpretation Description Data Sup porting Code Source(s) Document(s ) Glucose 86 mg/dL 65-139 Normal (applies to MED[facility] [Mass/volum non-numeric (Digestive e] in Serum results) Disease & or Plasma Nutrition [facility]) <content>Therapeutic target for gout pat ients: <6.0 mg/dL</content>
<content></content> Sodium [Moles/volume] 140 mmol/L 135-146 Normal (applies to MED[facility] (Digestive in Serum or Plasma non-numeric Disease & Nutrition results) [facility]) Potassium 3.9 mmol/L 3.5-5.3 Normal (applies to MED[facility] (Di gestive [Moles/volume] in non-numeric Disease & Nutrition Serum or Plasma results) [facility]) Chloride 100 mmol/L 98-110 Normal (applies to MED[facility] (Di gestive [Moles/volume] in non-numeric Disease & Nutrition Serum or Plasma results) [facility]) Carbon dioxide, total 26 mmol/L 20-32 Normal [facility] ([facility]ive [Moles/volume] in non-numeric Disease & Nutrition Serum or Plasma results) [facility]) Creatinine 0.86 mg/dL 0.50-0.99 Normal (applies to [facility] (D igestive [Mass/volume] in Serum non-numeric Disea se & Nutrition or Plasma results) [facility]) The upper reference limit for Creatinine is approximately 13% higher for people identified as Afri can-[place]. Urea nitrogen 21 mg/dL 7-25 Normal (applies to [facility] (Digestive [Mass/volume] in non-numeric Disease & N utrition Serum or Plasma results) [facility]) Calcium [Mass/volume] 10.1 mg/dL 8.6-10.4 Normal ([facility] (Digestive in Serum or Plasma non-numeric Disease & Nutrition results) [facility]) Urea NOTE (calc) 6-22 Normal ([facility] (D igestive nitrogen/Creatinine non-numeric Disease & Nutrition [Mass Ratio] in Serum results) [place] [facility] f or Plasma [place]) Bun/Creatinine ratio is not reported whe n the Bun and Creatinine values are within normal limi ts. Albumin/Globulin [Mass 1.5 (calc) 1.0-2.5 Normal ([facility] (Digestive Ratio] in Serum or non-numeric Disease & Nutrition Plasma results) [facility]) Albumin [Mass/volume] 4.6 g/dL 3.6-5.1 Normal (applies to [facility] (Digestive in Serum or Plasma non-numeric Disease & Nutrition results) [facility]) Globulin [Mass/volume] 3.1 1.9-3.7 Normal (applies to [facility] (Digestive in Serum by calculation g/dL(calc) non-numeric Dis ease & Nutrition results) [facility]) Protein [Mass/volume] 7.7 g/dL 6.1-8.1 Normal (applies to [facility] (Digestive in Serum or Plasma non-numeric Disease & Nutrition results) [facility]) Alkaline phosphatase 66 U/L 33-130 Normal (applies to MED[facility] (Digestive [Enzymatic non-numeric Disease & Nutriti on activity/volume] in results) Center of Serum or Plasma [place]) Aspartate 18 U/L 10-35 Normal (applies to MED[facility] (Dig estive aminotransferase non-numeric Disease & N utrition [Enzymatic results) Center of activity/volume] in [facility]) Serum or Plasma Bilirubin.total 0.5 mg/dL 0.2-1.2 Normal (applies to MEDEN T (Digestive [Mass/volume] in Serum non-numeric Disea se & Nutrition or Plasma results) [facility]) Alanine 24 U/L 6-29 Normal (applies to [facility] (Dig estive aminotransferase non-numeric Disease & N utrition [Enzymatic results) Center of activity/volume] in [facility]) Serum or Plasma Laboratory test finding 71 Normal (applies to MED[facility] (Digestive (navigational concept) mL/min/1.73m2 non-numeric D isease & Nutrition results) [facility]) Glomerular filtration 83 Normal ([facility] to [facility] (Digestive rate/1.73 sq M mL/min/1.73m2 non-numeric Disease & Nutrition predicted among blacks results) Center of [Volume Rate/Area] in [facility]) Serum or Plasma by Creatinine-based formula (MDRD) ID Date Data Source [id number] 02/04/2019 04:58:00 PM EDT MED[facility] (Diges tive Disease & Nutrition [facility]) Name Value Range Interpretation Description Data Sup porting Code Source(s) Document(s ) Erythrocytes 4.97 3.80-5.1 Normal (applies MED[facility] [#/volume] in mill/uL 0 to non-numeric (Digestive Blood by results) Disease & Automated count Nutrition [facility] ) Hemoglobin 14.9 11.7-15. Normal (applies MED[facility] [Mass/volume] in g/dL 5 to non-numeric (Digesti ve Blood results) Disease & Nutrition [facility] ) Leukocytes 7.1 3.8-10.8 Normal (applies MED[facility] [#/volume] in thous/uL to non-numeric (Digestive Blood by results) Disease & Automated count Nutrition Center [facility] ) Erythrocyte mean 90.1 fL 80.0-100 Normal (applies MEDENT corpuscular .0 to non-numeric (Digestive volume [Entitic results) Disease & volume] by Nutrition Automated count Center [facility] ) Hematocrit 44.8 % 35.0-45. Normal (applies MED[facility] [Volume 0 to non-numeric (Digestive Fraction] of results) Disease & Blood by Nutrition Automated count [facility] ) Erythrocyte mean 29.9 pg 27.0-33. Normal (applies MEDENT corpuscular 0 to non-numeric (Digestive hemoglobin results) Disease & [Entitic mass] Nutrition by Automated Center of count [place] ) Erythrocyte mean 33.2 32.0-36. Normal (applies MEDENT corpuscular g/dL 0 to non-numeric (Digestive hemoglobin results) Disease & concentration Nutrition [Mass/volume] by Center of Automated count [place] ) Erythrocyte 15.1 % 11.0-15. Above high normal MEDENT distribution 0 (Digestive width [Ratio] by Disease & Automated count Nutrition [facility] ) Platelets 369 140-400 Normal (applies MED[facility] [#/volume] in thous/uL to non-numeric (Digestive Blood by results) Disease & Automated count Nutrition [facility] ) Platelet mean 8.6 fL 7.5-12.5 Normal (applies MEDENT volume [Entitic to non-numeric (Digestiv e volume] in Blood results) Disease & by [place] Nutrition [facility] ) ID Date Data Source [id number] 01/04/2019 10:16:00 AM EST MEDENT (Diges tive Disease & Nutrition Center [facility]) Name Value Range Interpretation Description Data Sup porting Code Source(s) Document(s ) Laboratory SEE IMAGE Normal (applies to MED[facility] test finding non-numeric (Digestive (navigational results) Disease & concept) Nutrition [facility]) ID Date Data Source [id number] 01/04/2019 10:16:00 AM EST [facility] ([facility]ive Disease [facility] Name Value Range Interpretation Description Data Sup porting Code Source(s) Document(s ) Triglyceride 298 0-149 Above high normal MED[facility] [Mass/volume] mg/dL (Digestive in Serum or Disease & Plasma Nutrition [facility]) Cholesterol 256 100-199 Above high normal MED[facility] [Mass/volume] mg/dL (Digestive in Serum or Disease & Plasma Nutrition [facility]) Cholesterol in 61 mg/dL Normal (applies MEDENT HDL to non-numeric (Digestive [Mass/volume] results) Disease & in Serum or Nutrition Plasma [facility]) Cholesterol in 135 0-99 Above high normal MED[facility] LDL mg/dL (Digestive [Mass/volume] Disease & in Serum or Nutrition Plasma by Center of calculation [place]) Cholesterol in 60 mg/dL 5-40 Above high normal MED[facility] VLDL (Digestive [Mass/volume] Disease & in Serum or Nutrition Plasma by Center of calculation [place]) Laboratory test TNP Normal (applies MEDENT finding to non-numeric (Digestive (navigational results) Disease & concept) [facility]) ID Date Data Source [id number] 01/04/2019 10:16:00 AM EST [facility] ([facility] & Nutrition [facility]) Name Value Range Interpretation Description Data Sup porting Code Source(s) Document(s ) Hemoglobin 5.9 % 4.8-5.6 Above high normal MED[facility] A1c/Hemoglobin (Digestive .total in Disease & Blood Nutrition [facility]) <content>Prediabetes: 5.7 - 6.4</content >
<content>Diabetes: >6.4</content>
<content>Glycemic con trol for adults with diabetes: <7.0</content>
<content></content> ID Date Data Source [id number] 01/04/2019 10:16:00 AM EST [facility] ([facility] & Nutrition [facility]) Name Value Range Interpretation Description Data Sup porting Code Source(s) Document(s ) Thyrotropin 1.320 0.45-4. Normal (applies MED[facility] [Units/volume] in uIU/mL 5 to non-numeric (Digest vinay Serum or Plasma results) [facility] & Nutrition [facility] ) Laboratory test 1.7 1.2-4.9 Normal (applies MEDENT finding to non-numeric (Digestive (navigational results) Disease & concept) Nutrition [facility] ) Triiodothyronine 25 % 24-39 Normal (applies MEDENT resin uptake (T3RU) to non-numeric (Dige stive in Serum or Plasma results) Disease & Nutrition [facility] ) Laboratory test 6.7 4.5-12 Normal (applies MEDENT finding ug/dL to non-numeric (Digestive (navigational results) Disease & concept) Nutrition [facility] ) ID Date Data Source [id number] 01/04/2019 10:16:00 AM EST MED[facility] (Diges tive Disease & Nutrition [facility]) Name Value Range Interpretation Description Data Sup porting Code Source(s) Document(s ) Leukocytes 7.5 3.4-10.8 Normal (applies MED[facility] [#/volume] in x10E3/uL to non-numeric (Digestive Blood by results) Disease & Automated count Nutrition [facility] ) Erythrocytes 4.66 3.77-5.2 Normal (applies MED[facility] [#/volume] in x10E6/uL 8 to non-numeric (Digestive Blood by results) Disease & Automated count Nutrition [facility] ) Hemoglobin 13.9 11.1-15. Normal (applies MED[facility] [Mass/volume] in g/dL 9 to non-numeric (Digesti ve Blood results) Disease & Nutrition [facility] ) Hematocrit 41.5 % 34-46.6 Normal (applies MED[facility] [Volume to non-numeric (Digestive Fraction] of results) Disease & Blood by Nutrition Automated count [facility] ) Erythrocyte mean 89 fL 79-97 Normal (applies MED[facility] corpuscular to non-numeric (Digestive volume [Entitic results) Disease & volume] by Nutrition Automated count [facility] ) Erythrocyte mean 29.8 pg 26.6-33 Normal (applies MEDENT corpuscular to non-numeric (Digestive hemoglobin results) Disease & [Entitic mass] Nutrition by Automated Center [facility] ) Platelets 350 150-379 Normal (applies MED[facility] [#/volume] in x10E3/uL to non-numeric (Digestive Blood by results) Disease & Automated count Nutrition [facility] ) Erythrocyte 14.9 % 12.3-15. Normal (applies [facility] distribution 4 to non-numeric (Digestive width [Ratio] by results) Disease & Automated count Nutrition [facility] ) Erythrocyte mean 33.5 31.5-35. Normal (applies [facility] corpuscular g/dL 7 to non-numeric (Digestive hemoglobin results) Disease & concentration Nutrition [Mass/volume] by [facility] [place] ) Nucleated TNP Normal (applies [facility] erythrocytes/100 to non-numeric (Digesti ve leukocytes results) Disease & [Ratio] in Blood Nutrition by Automated [facility] [place] ) ID Date Data Source [id number] 01/04/2019 10:16:00 AM EST MED[facility] (Diges tive Disease & Nutrition Center [facility]) Name Value Range Interpretation Description Data Sup porting Code Source(s) Document(s ) Creatinine 0.79 0.57-1 Normal (applies [facility] [Mass/volume] in mg/dL to non-numeric (Digesti ve Serum or Plasma results) Disease & Nutrition [facility] ) Glucose 103 65-99 Above high [facility] [Mass/volume] in mg/dL normal (Digestive Serum or Plasma Disease & Nutrition [facility] ) Laboratory test 21 8-27 Normal (applies [facility] finding mg/dL to non-numeric (Digestive (navigational results) Disease & concept) Nutrition [facility] ) eGFR If NonAfricn 79 Normal (applies [facility] Am mL/min/ to non-numeric (Digestive 1.73 results) Disease & Nutrition [facility] ) Urea 27 12-28 Normal (applies [facility] nitrogen/Creatinine to non-numeric (Dige stive [Mass Ratio] in results) Disease & Serum or Plasma Nutrition [facility] ) eGFR If Africn Am 91 Normal (applies [facility] mL/min/ to non-numeric (Digestive 1.73 results) Disease & Nutrition [facility] ) Sodium 143 134-144 Normal (applies [facility] [Moles/volume] in mmol/L to non-numeric (Digest vinay Serum or Plasma results) Disease & Nutrition [facility] ) Potassium 4.4 3.5-5.2 Normal (applies [facility] [Moles/volume] in mmol/L to non-numeric (Digest vinay Serum or Plasma results) Disease & Nutrition [facility] ) Chloride 102 96-106 Normal (applies [facility] [Moles/volume] in mmol/L to non-numeric (Digest vinay Serum or Plasma results) Disease & Nutrition [facility] ) Protein 7.0 6-8.5 Normal (applies [facility] [Mass/volume] in g/dL to non-numeric (Digesti ve Serum or Plasma results) Disease & Nutrition [facility] ) Calcium 9.8 8.7-10. Normal (applies [facility] [Mass/volume] in mg/dL 3 to non-numeric (Digesti ve Serum or Plasma results) Disease & Nutrition [facility] ) Carbon dioxide, 22 20-29 Normal (applies [facility] total mmol/L to non-numeric (Digestive [Moles/volume] in results) Disease & Serum or Plasma Nutrition [facility] ) Albumin/Globulin 1.6 1.2-2.2 Normal (applies [facility] [Mass Ratio] in to non-numeric (Digestiv e Serum or Plasma results) Disease & Nutrition [facility] ) Albumin 4.3 3.6-4.8 Normal (applies [facility] [Mass/volume] in g/dL to non-numeric (Digesti ve Serum or Plasma results) Disease & Nutrition [facility] ) Globulin 2.7 1.5-4.5 Normal (applies [facility] [Mass/volume] in g/dL to non-numeric (Digesti ve Serum by results) Disease & calculation [facility] ) Aspartate 17 IU/L 0-40 Normal (applies [facility] aminotransferase to non-numeric (Digesti ve [Enzymatic results) Disease & activity/volume] in Nutrition Serum or Plasma [facility] ) Alkaline 84 IU/L 39-117 Normal (applies [facility] phosphatase to non-numeric (Digestive [Enzymatic results) Disease & activity/volume] in Nutrition Serum or Plasma [facility] ) Bilirubin.total 0.3 0-1.2 Normal (applies [facility] [Mass/volume] in mg/dL to non-numeric (Digesti ve Serum or Plasma results) Disease & Nutrition [facility] ) Alanine 27 IU/L 0-32 Normal (applies [facility] aminotransferase to non-numeric (Digesti ve [Enzymatic results) Disease & activity/volume] in Nutrition Serum or Plasma [facility] ) Procedure Social History Code Duration Value Status Description Data Source(s ) Denies Tobacco completed Denies Tobacco Use ME DENT (Digestive Use Disease & Nutr [facility]) ETOH Use Denies alcohol completed Denies alcohol use ME [facility]ENT (Digestive use Disease & Nutr [facility]) Occupation RN completed RN MEDENT (Digest vinay Disease & Nutr [facility]) Vital Signs ID Date Data Source UNK Name Value Range Interpretation Code Description Data Source(s) Body mass 44.3 kg/m2 44.3 kg/m2 MED[facility] (Digest vinay index (BMI) Disease & [Ratio] Nutrition [facility] ) Body weight 266.00 266.00 [lb_av] MED[facility] (D igestive [lb_av] Disease & Nutrition [facility] ) Body height 65 [in_i] 65 [in_i] MEDENT (Diges tive Disease & Nutrition [facility] ) 5'5" Respiratory rate 13 /min 13 /min MED[facility] ( Digestive Disease & Nutrition [facility]) Heart rate 74 /min 74 /min MED[facility] (Digest vinay Disease & Nutrition [facility]) Diastolic blood pressure 80 mm[Hg] 80 mm[Hg] [facility] (Digestive Disease & Nutrition [facility]) Systolic blood pressure 130 mm[Hg] 130 mm[Hg] M [facility]ENT (Digestive Disease & Nutrition [facility]) Body mass index (BMI) 44.3 kg/m2 44.3 kg/m2 MED ENT (Digestive Disease [Ratio] & Nutrition [facility]) Body weight 266.00 [lb_av] 266.00 [lb_av] MEDEN T (Digestive Disease & Nutrition [facility]) Body height 65 [in_i] 65 [in_i] MED[facility] (Diges tive Disease & Nutrition [facility]) 5'5" Respiratory rate 13 /min 13 /min MED[facility] ( Digestive Disease & Nutrition [facility]) Heart rate 67 /min 67 /min MED[facility] (Digest vinay Disease & Nutrition [facility]) Diastolic blood pressure 68 mm[Hg] 68 mm[Hg] [facility] (Digestive Disease & Nutrition [facility]) Systolic blood pressure 124 mm[Hg] 124 mm[Hg] M EDENT (Digestive Disease & Nutrition [facility]) Body mass index (BMI) 44.3 kg/m2 44.3 kg/m2 MED ENT (Digestive Disease [Ratio] & Nutrition [facility]) Body weight 266.00 [lb_av] 266.00 [lb_av] MED[facility] T (Digestive Disease & Nutrition [facility]) Body height 65 [in_i] 65 [in_i] MED[facility] (Diges tive Disease & Nutrition [facility]) 5'5" Respiratory rate 13 /min 13 /min MED[facility] ( Digestive Disease & Nutrition [facility]) Heart rate 73 /min 73 /min MED[facility] (Digest vinay Disease & Nutrition [facility]) Diastolic blood pressure 64 mm[Hg] 64 mm[Hg] [facility] (Digestive Disease & Nutrition [facility]) Systolic blood pressure 126 mm[Hg] 126 mm[Hg] [facility] (Digestive Disease & Nutrition [facility]) Body mass index (BMI) 44.6 kg/m2 44.6 kg/m2 MED E[facility] (Digestive Disease [Ratio] & Nutrition [facility]) Body weight 268.00 [lb_av] 268.00 [lb_av] MED[facility] T (Digestive Disease & Nutrition [facility]) Body height 65 [in_i] 65 [in_i] [facility] (Diges tive Disease & Nutrition [facility]) 5'5" Respiratory rate 13 /min 13 /min MED[facility] ( Digestive Disease & Nutrition [facility]) Heart rate 67 /min 67 /min [facility] (Digest vinay Disease & Nutrition [facility]) Diastolic blood pressure 60 mm[Hg] 60 mm[Hg] [facility] (Digestive Disease & Nutrition [facility]) Systolic blood pressure 122 mm[Hg] 122 mm[Hg] [facility] (Digestive Disease & Nutrition [facility]) Body mass index (BMI) 44.9 kg/m2 44.9 kg/m2 MED E[facility] (Digestive Disease [Ratio] & Nutrition [facility]) Body weight 270.00 [lb_av] 270.00 [lb_av] MED[facility] T (Digestive Disease & Nutrition [facility]) Body height 65 [in_i] 65 [in_i] [facility] (Diges tive Disease & Nutrition [facility]) 5'5" Respiratory rate 13 /min 13 /min [facility] ( Digestive Disease & Nutrition [facility]) Heart rate 78 /min 78 /min [facility] (Digest vinay Disease & Nutrition [facility]) Diastolic blood pressure 72 mm[Hg] 72 mm[Hg] [facility] (Digestive Disease & Nutrition [facility]) Systolic blood pressure 126 mm[Hg] 126 mm[Hg] [facility] (Digestive Disease & Nutrition [facility]) Body mass index (BMI) 45.1 kg/m2 45.1 kg/m2 MED [facility] (Digestive Disease [Ratio] & Nutrition [facility]) Body weight 271.00 [lb_av] 271.00 [lb_av] [facility] T (Digestive Disease & Nutrition [facility]) Body height 65 [in_i] 65 [in_i] [facility] (Diges tive Disease & Nutrition [facility]) 5'5" Respiratory rate 13 /min 13 /min MED[facility] ( Digestive Disease & Nutrition [facility]) Heart rate 66 /min 66 /min [facility] (Digest vinay Disease & Nutrition [facility]) Diastolic blood pressure 70 mm[Hg] 70 mm[Hg] [facility] (Digestive Disease & Nutrition [facility]) Systolic blood pressure 130 mm[Hg] 130 mm[Hg] [facility] (Digestive Disease & Nutrition [facility]) Body mass index (BMI) 45.9 kg/m2 45.9 kg/m2 MED [facility] (Digestive Disease [Ratio] & Nutrition [facility]) Body weight 276.00 [lb_av] 276.00 [lb_av] [facility] T (Digestive Disease & Nutrition [facility]) Body height 65 [in_i] 65 [in_i] [facility] (Diges tive Disease & Nutrition [facility]) 5'5" Respiratory rate 13 /min 13 /min [facility] ( Digestive Disease & Nutrition [facility]) Heart rate 80 /min 80 /min [facility] (Digest vinay Disease & Nutrition [facility]) Diastolic blood pressure 80 mm[Hg] 80 mm[Hg] [facility] (Digestive Disease & Nutrition [facility]) Systolic blood pressure 120 mm[Hg] 120 mm[Hg] [facility] (Digestive Disease & Nutrition [facility]) Body mass index (BMI) 46.4 kg/m2 46.4 kg/m2 MED [facility] (Digestive Disease [Ratio] & Nutrition [facility]) Body weight 279.00 [lb_av] 279.00 [lb_av] [facility] (Digest[facility] Disease & Nutrition [facility]) Body height 65 [in_i] 65 [in_i] [facility] (Diges tive Disease & Nutrition [facility]) 5'5" Respiratory rate 13 /min 13 /min MED[facility] ( Digestive Disease & Nutrition [facility]) Heart rate 72 /min 72 /min [facility] (Digest vinay Disease & Nutrition [facility]) Diastolic blood pressure 78 mm[Hg] 78 mm[Hg] [facility] (Digestive Disease & Nutrition [facility]) Systolic blood pressure 136 mm[Hg] 136 mm[Hg] [facility] (Digestive Disease & Nutrition [facility]) Body mass index (BMI) 47.3 kg/m2 47.3 kg/m2 MED [facility] (Digestive Disease [Ratio] & Nutrition [facility]) Body weight 284.00 [lb_av] 284.00 [lb_av] [facility] (Digestive Disease & Nutrition [facility]) Body height 65 [in_i] 65 [in_i] [facility] (Diges tive Disease & Nutrition [facility]) 5'5" Respiratory rate 16 /min 16 /min [facility] ( Digestive Disease & Nutrition [facility]) Heart rate 80 /min 80 /min [facility] (Digest vinay Disease & Nutrition [facility]) Diastolic blood pressure 80 mm[Hg] 80 mm[Hg] [facility] (Digestive Disease & Nutrition [facility]) Systolic blood pressure 130 mm[Hg] 130 mm[Hg] [facility] (Digestive Disease & Nutrition [facility]) Body mass index (BMI) 47.9 kg/m2 47.9 kg/m2 [facility] (Digestive Disease [Ratio] & Nutrition [facility] [place]) Body weight 288.00 [lb_av] 288.00 [lb_av] [facility] T (Digestive Disease & Nutrition [facility]) Body height 65 [in_i] 65 [in_i] [facility] (Diges tive Disease & Nutrition [facility]) 5'5" Respiratory rate 13 /min 13 /min [facility] ( Digestive Disease & Nutrition [facility]) Heart rate 72 /min 72 /min MED[facility] (Digest viany Disease & Nutrition [facility]) Diastolic blood pressure 70 mm[Hg] 70 mm[Hg] [facility] (Digestive Disease & Nutrition [facility]) Systolic blood pressure 132 mm[Hg] 132 mm[Hg] [facility] (Digestive Disease & Nutrition [facility]) Body mass index (BMI) 48.6 kg/m2 48.6 kg/m2 [facility] (Digestive Disease [Ratio] & Nutrition [facility]) Body weight 292.00 [lb_av] 292.00 [lb_av] [facility] T (Digestive Disease & Nutrition [facility]) Body height 65 [in_i] 65 [in_i] [facility] (Diges tive Disease & Nutrition [facility]) 5'5" Respiratory rate 16 /min 16 /min [facility] ( Digestive Disease & Nutrition [facility]) Heart rate 76 /min 76 /min [facility] (Digest vinay Disease & Nutrition [facility]) Diastolic blood pressure 80 mm[Hg] 80 mm[Hg] [facility] (Digestive Disease & Nutrition [facility]) Systolic blood pressure 140 mm[Hg] 140 mm[Hg] [facility] (Digestive Disease & Nutrition [facility]) Body mass index (BMI) 49.1 kg/m2 49.1 kg/m2 [facility] (Digestive Disease [Ratio] & Nutrition [facility]) Body weight 295.00 [lb_av] 295.00 [lb_av] [facility] T (Digestive Disease & Nutrition [facility]) Body height 65 [in_i] 65 [in_i] [facility] (Diges tive Disease & Nutrition [facility]) 5'5" Respiratory rate 13 /min 13 /min [facility] ( Digestive Disease & Nutrition [facility]) Heart rate 72 /min 72 /min [facility] (Digest vinay Disease & Nutrition [facility]) Diastolic blood pressure 82 mm[Hg] 82 mm[Hg] [facility] (Digestive Disease & Nutrition [facility]) Systolic blood pressure 120 mm[Hg] 120 mm[Hg] [facility] (Digestive Disease & Nutrition [facility]) Body mass index (BMI) 49.8 kg/m2 49.8 kg/m2 [facility] (Digestive Disease [Ratio] & Nutrition [facility]) Body weight 299.00 [lb_av] 299.00 [lb_av] [facility] T (Digestive Disease & Nutrition [facility]) Body height 65 [in_i] 65 [in_i] [facility] (Diges tive Disease & Nutrition [facility]) 5'5" Respiratory rate 13 /min 13 /min [facility] ( Digestive Disease & Nutrition [facility]) Heart rate 82 /min 82 /min [facility] (Digest vinay Disease & Nutrition [facility]) Diastolic blood pressure 86 mm[Hg] 86 mm[Hg] [facility] (Digestive Disease & Nutrition [facility]) Systolic blood pressure 142 mm[Hg] 142 mm[Hg] [facility] (Digestive Disease & Nutrition [facility]) Heart rate 98 /min 98 /min [facility] (Digest vinay Disease & Nutrition [facility]) Diastolic blood pressure 78 mm[Hg] 78 mm[Hg] [facility] (Digestive Disease & Nutrition [facility]) Systolic blood pressure 122 mm[Hg] 122 mm[Hg] [facility] (Digestive Disease & Nutrition [facility]) Body mass index (BMI) 49.9 kg/m2 49.9 kg/m2 [facility] (Digestive Disease [Ratio] & Nutrition [facility]) Body weight 300.00 [lb_av] 300.00 [lb_av] [facility] T (Digestive Disease & Nutrition [facility]) Body height 65 [in_i] 65 [in_i] [facility] (Diges tive Disease & Nutrition [facility]) 5'5" Respiratory rate 13 /min 13 /min [facility] ( Digestive Disease & Nutrition [facility]) Body mass index (BMI) 51.2 kg/m2 51.2 kg/m2 [facility] (Digestive Disease [Ratio] & Nutrition [facility]) Body weight 308.00 [lb_av] 308.00 [lb_av] [facility] T (Digestive Disease & Nutrition [facility]) Body height 65 [in_i] 65 [in_i] [facility] (Diges tive Disease & Nutrition [facility]) 5'5" Respiratory rate 16 /min 16 /min [facility] ( Digestive Disease & Nutrition [facility]) Heart rate 88 /min 88 /min [facility] (Digest vinay Disease & Nutrition [facility]) Diastolic blood pressure 100 mm[Hg] 100 mm[Hg] [facility] (Digestive Disease & Nutrition [facility]) Systolic blood pressure 166 mm[Hg] 166 mm[Hg] Luz [facility] (Digestive Disease & Nutrition [facility])
[2020-08-14 09:08] VITALS: TEMP 98
[2020-08-14 09:44] VITALS: BP 156/66; PULSE 63
--- NOTE | 2020-08-15 17:34 | PATH ---
Surgical Pathology Report Patient Name: AMMON MACKEY [facility]. Rec. #: [id number] /Age/Gender: 1955 (Age: 65) / F Account: [id number] Location: [facility] Taken: 08/14/2020 Received: 08/14/2020 Reported: 08/15/2020 Physicians: Leonela Humphrey M.D. Specimen(s) Received A: SMALL CECUM POLYP B: MID RIGHT COLON POLYP C: PROXIMAL RIGHT COLON POLYP D: DISTAL RIGHT COLON POLYP E: PROXIMAL TRANSVERSE COLON POLYP AND MID TRANSVERSE COLON POLYP F: DISTAL TRANVERSE COLON POLYP G: SIGMOID POLYP H: RECTAL POLYP Clinical History Screening Postoperative diagnosis: Cecum polyp, rectal polyp, diverticulosis, pneumatosis coli Final Diagnosis A. SMALL CECUM, POLYP, BIOPSY: POLYPOID COLONIC MUCOSA WITH SMALL LYMPHOID AGGREGATE. B. MID RIGHT COLON, POLYP, BIOPSY: POLYPOID COLONIC MUCOSA WITH SMALL LYMPHOID AGGREGATES, LAMINA PROPRIA HEMORRHAGE AND PROMINENT EOSINOPHILIC INFILTRATE (UP TO >200 EOSINOPHILS/HPF). SEE COMMENT. C. PROXIMAL RIGHT COLON, POLYP, BIOPSY: POLYPOID COLONIC MUCOSA WITH SMALL LYMPHOID AGGREGATES, LAMINA PROPRIA HEMORRHAGE AND PROMINENT EOSINOPHILIC INFILTRATE (UP TO 160 EOSINOPHILS/HPF). SEE COMMENT. D. DISTAL RIGHT COLON, POLYP, BIOPSY: POLYPOID COLONIC MUCOSA WITH SMALL LYMPHOID AGGREGATES. E. PROXIMAL TRANSVERSE COLON POLYP AND MID TRANSVERSE COLON POLYP, BIOPSY: POLYPOID COLONIC MUCOSA WITH SMALL LYMPHOID AGGREGATES, LAMINA PROPRIA HEMORRHAGE AND PROMINENT EOSINOPHILIC INFILTRATE (UP TO 160 EOSINOPHILS/HPF). SEE COMMENT. F. DISTAL TRANSVERSE COLON POLYP, BIOPSY: POLYPOID COLONIC MUCOSA WITH MILD LAMINA PROPRIA EDEMA, SCANT SUBMUCOSAL FIBROADIPOSE TISSUE, SUGGESTIVE OF SUBMUCOSAL LIPOMA. G. SIGMOID COLON, POLYP, BIOPSY: HYPERPLASTIC POLYP. H. RECTAL POLYP, BIOPSY: COLONIC MUCOSA WITH FOCAL SUPERFICIAL HYPERPLASTIC FEATURES. Comment: Parts B,C,E, Findings are nonspecific. Possible etiologies include: idiopathic eosinophilic (gastro)enteritis, medication, allergy, parasites, inflammatory bowel disease, connective tissue disorder, and malignancy. Suggest clinical and endoscopic correlation. Electronically Signed Kathy Melo M.D. Gross Description A. Received in formalin, labeled "small cecum polyp biopsy" are 2 potter, irregular portions of soft tissue measuring 0.2 and 0.4 cm. in greatest dimension. The specimens are submitted in toto in one cassette. B. Received in formalin labeled "mid right colon polyp biopsy," is a 0.8 x 0.6 x 0.2 cm aggregate of potter soft tissue fragments. The formalin is filtered and the specimen is entirely submitted in one cassette. C. Received in formalin, labeled "proximal right colon polyp biopsy" are 3 potter, irregular portions of soft tissue ranging from 0.2-0.5 cm. in greatest dimension. The specimens are submitted in toto in one cassette. D. Received in formalin, labeled "distal right colon polyp biopsy" are 4 potter, irregular portions of soft tissue ranging from 0.2-0.3 cm. in greatest dimension. The specimens are submitted in toto in one cassette. E. Received in formalin, labeled "proximal transverse colon polyp and mid transverse colon polyp biopsy" are 3 potter, irregular portions of soft tissue ranging from 0.2-0.5 cm. in greatest dimension. The specimens are submitted in toto in one cassette. F. Received in formalin, labeled "distal transverse colon polyp biopsy" are 3 potter, irregular portions of soft tissue ranging from 0.1-0.3 cm. in greatest dimension. The specimens are submitted in toto in one cassette. G. Received in formalin, labeled "sigmoid polyp biopsy" are 4 potter, irregular portions of soft tissue ranging from 0.2-0.3 cm. in greatest dimension. The specimens are submitted in toto in one cassette. H. Received in formalin, labeled "rectal polyp biopsy" are 2 potter, irregular portions of soft tissue averaging 0.1 cm. in greatest dimension. The specimens are submitted in toto in one cassette. 08/14/2020 saudi08/14/2020
== END 2020-08-14 09:45 | disposition home or self-care (01) ==
LOC: JASU-SURG 05:05
PROVIDERS: ATTEND Internal Medicine Gastroenterology
PROC: 0DBL8ZX Excision of Transverse Colon, Via Natural or Artificial Opening Endoscopic, Diagnostic (ICD-10-PCS; 2020-08-14)
PROC: 0DBN8ZX Excision of Sigmoid Colon, Via Natural or Artificial Opening Endoscopic, Diagnostic (ICD-10-PCS; 2020-08-14)
PROC: 0DBP8ZX Excision of Rectum, Via Natural or Artificial Opening Endoscopic, Diagnostic (ICD-10-PCS; 2020-08-14)
PROC: 0DBF8ZX Excision of Right Large Intestine, Via Natural or Artificial Opening Endoscopic, Diagnostic (ICD-10-PCS; 2020-08-14)
PROC: 0DBH8ZX Excision of Cecum, Via Natural or Artificial Opening Endoscopic, Diagnostic (ICD-10-PCS; principal; 2020-08-14 08:00)
DX: Z12.11 Encounter for screening for malignant neoplasm of colon (principal); Z80.0 Family history of malignant neoplasm of digestive organs; K62.1 Rectal polyp; D12.0 Benign neoplasm of cecum; K57.30 Diverticulosis of large intestine without perforation or abscess without bleeding; K63.89 Other specified diseases of intestine
CPT/HCPCS: 88305-TC